=== PATIENT | female | born 1965 | race Caucasian/White ===

== ENCOUNTER 2024-01-31 07:44 | Day surgery (SDC) | payer OTHER ==
[~2024-01-31] VITALS: Ht 149.9 cm; Wt 77.1 kg
[2024-01-31] MEDS ORDERED: fentaNYL citrate 0.05 MG/ML VIAL ONE (08:54)
[2024-01-31] MEDS ORDERED: LIDOCAINE 2% 100 MG/5 ML UJET TP ONE (08:54)
[2024-01-31] MEDS: fentaNYL citrate 0.05 MG/ML VIAL IVP ONE (09:40)
== END 2024-01-31 11:20 | disposition home or self-care (01) ==
LOC: MMU 07:44 → MDS 07:44
PROVIDERS: ATTEND Internal Medicine Gastroenterology
DX: Z12.11 Encounter for screening for malignant neoplasm of colon (principal); F32.A Depression, unspecified; F41.9 Anxiety disorder, unspecified; M19.90 Unspecified osteoarthritis, unspecified site; Z79.82 Long term (current) use of aspirin; Z79.899 Other long term (current) drug therapy; Z98.890 Other specified postprocedural states
CPT/HCPCS: 45378; J3010